=== PATIENT | male | born 1970 | race Caucasian/White ===

== ENCOUNTER → 2020-08-06 11:36 | Outpatient (CLI) | payer OTHER, SELFPAY ==
--- NOTE | 2020-08-06 | DI.RAD.S_ITS ---
PROCEDURE: XR SHOULDER RT MIN 2V INDICATIONS: DECREASED ROM, PAIN, R/O BONY ABNORMALITY TECHNIQUE: 3 views of the shoulder were acquired. COMPARISON: None. FINDINGS: Bones: No fracture. Lateral downsloping of the acromion. Soft tissues: No suspicious soft tissue calcifications. IMPRESSION: Lateral downsloping appearance to the acromion otherwise unremarkable examination. If the patient's pain or other symptoms persist, consider further evaluation with MRI Dictated by: Jacky Saenz M.D. on 08/06/2020 at 12:10 Approved by: Jacky Saenz M.D. on 08/06/2020 at 12:11
== END ==
PROVIDERS: Referring Provider Physician Assistant; Visit Provider Physician Assistant
DX: M25.511 Pain in right shoulder (principal)
CPT/HCPCS: 73030

== ENCOUNTER 2020-10-22 14:30 | Outpatient (RCR) | payer OTHER, SELFPAY ==
--- NOTE | 2020-09-18 14:07 | PT.OIE ---
Current Diagnoses Pain in right shoulder (09/18/20) Past Medical History (Last Updated 08/06/20 @ 11:18 by Sarah Kimball PA-C) Right shoulder pain (Acute) Visit Care Team Role Provider Type Doctor MD Arvind Primary Care Provider Non-Staff Specialty: Medical Address: Phone: Fax: Email: Sarah Kimball PA-C Attending Provider Advanced Supervisor Forming And Tempering Referring Provider Specialty: Internal Medicine Address: [address] [place] [address], [place], [address] Email: [email or web address] Physical Therapy Initial Evaluation PT-OP-A Visit Information Start: 09/17/20 13:29 Freq: Status: Active Protocol: Document 09/18/20 07:30 MB (Rec: 09/18/20 07:54 MB [id number]) Out-Patient Physical Therapy Visit Information Visit Information Visit Type Initial Evaluation Visit Start Time 07:30 Visit Stop Time 08:15 Total Visit Minutes 45 Visit Number 1 Evaluation Information Evaluation Date 09/18/20 PT-OP-B Current Condition Start: 09/17/20 13:29 Freq: Status: Active Protocol: Document 09/18/20 07:30 MB (Rec: 09/18/20 07:54 MB [id number]) Current Condition History of Current Condition Onset Date 3 months Current Complaints Pain with reaching to the side History of Current Condition 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 Lifting, push-ups can cause symptoms. He does not tolerate massage. He tried Lyrica and Gabapentin and they affected his short-term memory. Sleeping is going better since he got a Temperpedic mattress . Pt reports 7-8/10 pain in right shoulder with certain movement including reaching deep into a shelf at the grocery store. Putting on his shirt is problematic and he bought some bigger t-shirts. He has trouble with using back scrubber with his right arm. He feels like the shoulder is frozen and that he has a rotator cuff issue. Pt reports history of hiatal hernia. He has a virtual surgeon appointment this week. He has reflux and snoring and uses a CPAP. He sleeps on his right side with one pillow support under head. Pt has a history of left rotator cuff injury and suddenly he couldn't lift. He had free movement but but lost strength to lift. He went to PT and got better. Pt states that pillow case exercise against the wall was helpful. The body blade was also helpful. Pt sits at a desk all day. He has a desk that can move up and down. The carpet is cushiony and the chair is supportive. 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 Pt likes to walk for exercise. Prior Treatments and Tests X-ray right shoulder 08/06/2020 revealed lateral downsloping appearance to the acromion otherwise unremarkable examination. Treatment Goals Patient/Caregiver Goals To get out of pain and become less cranky. PT-OP-C Subjective Start: 09/17/20 13:29 Freq: Status: Active Protocol: Document 09/18/20 07:30 MB (Rec: 09/18/20 07:54 MB [id number]) OP-PT Subjective Patient Comments Patient Comments See history of current condition Patient Reported Progress Improving Patient Questionnaires Quick Dash- Upper Extremity Quick Dash UE Score 28 Quick Dash UE Impairment 20 to 39% Impaired (Score 20- 39) PT-OP-J Posture/Palpation/Skin Start: 09/17/20 13:29 Freq: Status: Active Protocol: Document 09/18/20 07:30 MB (Rec: 09/18/20 11:20 MB [id number]) Posture Evaluation Comments Posture Comments Standing: forward head, rounded shoulders, increased lumbar lordosis, anterior tilt pelvis, B shoulders elevated (greater on the left), increased thoracic kyphosis and curvature lower thoracic spine with right convexity, left iliac crest higher than the right. PT-OP-K Range of Motion Start: 09/17/20 13:29 Freq: Status: Active Protocol: Document 09/18/20 07:30 MB (Rec: 09/18/20 11:20 MB [id number]) Cervical Spine Range of Motion Cervical Spine Active Testing Position Standing Flexion 22 Extension 25 Rotation Left 40 Rotation Right 40 Lateral Flexion Left 15 Lateral Flexion Right 12 Shoulder Goniometric Range of Motion Shoulder Left Shoulder ROM WFL Yes Testing Position Standing Right Shoulder ROM WFL No Testing Position Standing Flexion 146 Abduction 96 Internal Rotation Behind Back (text) Functional for dominant hand Comments Pt reports increased right shoulder discomfort with active shoulder flexion and abduction in standing. Passive ER and IR in supine with shoulder in 85 deg abd: ER 50 deg and IR 25 deg. Pt reports 8-9/10 pain with this and points to middle delt/ supraspinatus attachment area on the upper humerus. He reports 6/10 right shoulder pain with PROM flexion in supine to 150 deg at the same location. Shoulder ROM Limitations Shoulder ROM Limitations Pain PT-OP-M Strength Start: 09/17/20 13:29 Freq: Status: Active Protocol: Document 09/18/20 07:30 MB (Rec: 09/18/20 11:20 MB [id number]) Shoulder Strength Shoulder Manual Muscle Testing Left Flexion 5 Normal Abduction (C5) 4 Good External Rotation 3+ Fair+ Internal Rotation 4 Good Right Comments MMT deferred d/t pain and limited active ROM Elbow/Forearm Strength Elbow and Forearm Manual Muscle Testing Left Flexion (C6) 5 Normal Extension (C7) 5 Normal Pronation 5 Normal Supination 5 Normal Right Flexion (C6) 4 Good Extension (C7) 5 Normal Pronation 4 Good Supination 4 Good Comments Pt reports minimal discomfort at painful spot near shoulder Wrist Strength Wrist Manual Muscle Testing Left Flexion (C7) 5 Normal Extension (C6) 5 Normal Ulnar Deviation 5 Normal Radial Deviation 5 Normal Right Flexion (C7) 4 Good Extension (C6) 4 Good Ulnar Deviation 4 Good Radial Deviation 4 Good PT-OP-T Assessment and Plan Start: 09/17/20 13:29 Freq: Status: Active Protocol: Document 09/18/20 07:30 MB (Rec: 09/18/20 11:20 MB [id number]) Physical Therapy Assessment Rehab Potential Rehabilitation Potential Fair Evaluation Complexity Number of Personal Factors/Comorbidities 1-2 Number of Body Systems Impaired 1-2 Clinical Presentation at Evaluation Evolving Impairments Impairments Pain,Posture,ROM,Sensation, Soft Tissue Mobility,Strength Other Impairments Pt has underlying HNPP and states that he is sensitive to touch, lifting weights and some other exercises. He has experienced palsy symptoms in the past. He also has anatomical changes of right acromion position. These are barriers to PT. Goals 4 Ice Cream Machine Operator Goal (LTG) Pt will perform progressive HEP with I including postural, range of motion, flexibility and strengthening to improve pain and function by 11/18/2020 . LTG Duration 8 weeks 3 Chcf Goal (LTG) Pt will present with improved right shoulder strength to at least 4/5 flexion, abduction, ER and IR to improve overall right arm function by 2020. LTG Duration 8 weeks 2 Ice Cream Machine Operator Goal (LTG) Pt will present with improved right shoulder AROM flexion and abduction equal to the left to improve functional use of arm by 11/18/2020. LTG Duration 8 weeks 1 Ice Cream Machine Operator Goal (LTG) Pt will present with improved QuickDASH score to reflect no more than 15% impairment to reflect improved function and decreased pain by 11/18/2020. LTG Duration 8 weeks Assessment Summary Assessment Pt is a 50 y/o male presenting with right shoulder pain and limitations in range of motion and strength. Pt denies injury and reports gradual progressive pain over three months. X-ray of right shoulder revealed acrominion positioning changes and pt reports that he has underlying hereditary disease of HNPP that causes occ palsy and pain . He has to limit exercises and strengthening as a result of this condition. He also reports occ intolerance to manual interventions. This may be a barrier to PT. He did respond well to PT for his left shoulder in the past. He will benefit from PT to improve right shoulder ROM, strength and functional use. Physical Therapy Plan Frequency and Duration Frequency of Treatment 2x/Week Duration of Treatment 8 weeks Plan of Care Start Date 09/18/20 Plan of Care End Date 11/19/20 Therapeutic Interventions Therapeutic Interventions Balance Training,Canalithic Repositioning,Coordination Training,Home Exercise Program ,Joint Mobilizations,Manual Therapy,Neuromuscular Re- education,Patient/Caregiver Education,Self-Care/Home Management,Sensory Integration ,Soft Tissue Mobilization, Taping,Therapeutic Activities, Therapeutic Exercises Modalities Cold Pack/Ice Massage,Electric Stimulation,Hot Packs, Ultrasound Next Visit Focus/Plan Next Note Type Treatment Note Next Visit Plan Initiate exercises including pillow case flexion, UBE, thoracic mobility, use of cane for AAROM
--- NOTE | 2020-09-18 14:08 | PT.OPPOC ---
Physical, Occupational & Speech Therapy At [facility] Current Diagnoses Pain in right shoulder (09/18/20) Visit Care Team Role Provider Type Doctor MD Arvind Primary Care Provider Non-Staff Specialty: Medical Address: Phone: Fax: Email: Sarah Kimball PA-C Attending Provider Advanced Cellular Equipment Repairer Referring Provider Specialty: Internal Medicine Address: [address] [place] [address], [facility] [place], [address] Email: [email or web address] Plan Of Care PT-OP-T Assessment and Plan Start: 09/17/20 13:29 Freq: Status: Active Protocol: Document 09/18/20 07:30 MB (Rec: 09/18/20 11:20 MB [id number]) Physical Therapy Assessment Rehab Potential Rehabilitation Potential Fair Evaluation Complexity Number of Personal Factors/Comorbidities 1-2 Number of Body Systems Impaired 1-2 Clinical Presentation at Evaluation Evolving Impairments Impairments Pain,Posture,ROM,Sensation, Soft Tissue Mobility,Strength Other Impairments Pt has underlying HNPP and states that he is sensitive to touch, lifting weights and some other exercises. He has experienced palsy symptoms in the past. He also has anatomical changes of right acromion position. These are barriers to PT. Goals 4 Medical Field Representative Goal (LTG) Pt will perform progressive HEP with I including postural, range of motion, flexibility and strengthening to improve pain and function by 11/18/2020 . LTG Duration 8 weeks 3 Medical Field Representative Goal (LTG) Pt will present with improved right shoulder strength to at least 4/5 flexion, abduction, ER and IR to improve overall right arm function by 2020. LTG Duration 8 weeks 2 Mcfp Goal (LTG) Pt will present with improved right shoulder AROM flexion and abduction equal to the left to improve functional use of arm by 11/18/2020. LTG Duration 8 weeks 1 Mcfp Goal (LTG) Pt will present with improved QuickDASH score to reflect no more than 15% impairment to reflect improved function and decreased pain by 11/18/2020. LTG Duration 8 weeks Assessment Summary Assessment Pt is a 50 y/o male presenting with right shoulder pain and limitations in range of motion and strength. Pt denies injury and reports gradual progressive pain over three months. X-ray of right shoulder revealed acrominion positioning changes and pt reports that he has underlying hereditary disease of HNPP that causes occ palsy and pain . He has to limit exercises and strengthening as a result of this condition. He also reports occ intolerance to manual interventions. This may be a barrier to PT. He did respond well to PT for his left shoulder in the past. He will benefit from PT to improve right shoulder ROM, strength and functional use. Physical Therapy Plan Frequency and Duration Frequency of Treatment 2x/Week Duration of Treatment 8 weeks Plan of Care Start Date 09/18/20 Plan of Care End Date 11/19/20 Therapeutic Interventions Therapeutic Interventions Balance Training,Canalithic Repositioning,Coordination Training,Home Exercise Program ,Joint Mobilizations,Manual Therapy,Neuromuscular Re- education,Patient/Caregiver Education,Self-Care/Home Management,Sensory Integration ,Soft Tissue Mobilization, Taping,Therapeutic Activities, Therapeutic Exercises Modalities Cold Pack/Ice Massage,Electric Stimulation,Hot Packs, Ultrasound Next Visit Focus/Plan Next Note Type Treatment Note Next Visit Plan Initiate exercises including pillow case flexion, UBE, thoracic mobility, use of cane for AAROM Plan of Care Dates Plan of Care Start Date 09/18/20 Plan of Care End Date 11/19/20 Electronically Signed by: Shelby Brian, PT 09/18/20 [id number] Please Sign and Return: I have reviewed this Plan of Care and certify that the skilled therapy services above are required to meet the patient?s needs. Physician Signature Date Printed Name and Credentials Clinical Instructor Signature Printed Name and Credentials
--- NOTE | 2020-09-21 08:15 | PT.OTN ---
Current Diagnoses Pain in right shoulder (09/21/20) Physical Therapy Treatment Note PT-OP-A Visit Information Start: 09/17/20 13:29 Freq: Status: Active Protocol: Document 09/21/20 07:30 MB (Rec: 09/21/20 07:36 MB [id number]) Out-Patient Physical Therapy Visit Information Visit Information Visit Type Treatment Note Visit Start Time 07:30 Visit Stop Time 08:15 Total Visit Minutes 45 Visit Number 2 PT-OP-B Current Condition Start: 09/17/20 13:29 Freq: Status: Active Protocol: Document 09/18/20 07:30 MB (Rec: 09/18/20 07:54 MB [id number]) Current Condition History of Current Condition Onset Date 3 months Current Complaints Pain with reaching to the side History of Current Condition 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 Lifting, push-ups can cause symptoms. He does not tolerate massage. He tried Lyrica and Gabapentin and they affected his short-term memory. Sleeping is going better since he got a Temperpedic mattress . Pt reports 7-8/10 pain in right shoulder with certain movement including reaching deep into a shelf at the grocery store. Putting on his shirt is problematic and he bought some bigger t-shirts. He has trouble with using back scrubber with his right arm. He feels like the shoulder is frozen and that he has a rotator cuff issue. Pt reports history of hiatal hernia. He has a virtual surgeon appointment this week. He has reflux and snoring and uses a CPAP. He sleeps on his right side with one pillow support under head. Pt has a history of left rotator cuff injury and suddenly he couldn't lift. He had free movement but but lost strength to lift. He went to PT and got better. Pt states that pillow case exercise against the wall was helpful. The body blade was also helpful. Pt sits at a desk all day. He has a desk that can move up and down. The carpet is cushiony and the chair is supportive. 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 Pt likes to walk for exercise. Prior Treatments and Tests X-ray right shoulder 08/06/2020 revealed lateral downsloping appearance to the acromion otherwise unremarkable examination. Treatment Goals Patient/Caregiver Goals To get out of pain and become less cranky. PT-OP-C Subjective Start: 09/17/20 13:29 Freq: Status: Active Protocol: Document 09/21/20 07:30 MB (Rec: 09/21/20 07:36 MB [id number]) OP-PT Subjective Patient Comments Patient Comments I'm doing okay. PT-OP-J Posture/Palpation/Skin Start: 09/17/20 13:29 Freq: Status: Active Protocol: Document 09/18/20 07:30 MB (Rec: 09/18/20 11:20 MB [id number]) Posture Evaluation Comments Posture Comments Standing: forward head, rounded shoulders, increased lumbar lordosis, anterior tilt pelvis, B shoulders elevated (greater on the left), increased thoracic kyphosis and curvature lower thoracic spine with right convexity, left iliac crest higher than the right. PT-OP-K Range of Motion Start: 09/17/20 13:29 Freq: Status: Active Protocol: Document 09/18/20 07:30 MB (Rec: 09/18/20 11:20 MB [id number]) Cervical Spine Range of Motion Cervical Spine Active Testing Position Standing Flexion 22 Extension 25 Rotation Left 40 Rotation Right 40 Lateral Flexion Left 15 Lateral Flexion Right 12 Shoulder Goniometric Range of Motion Shoulder Left Shoulder ROM WFL Yes Testing Position Standing Right Shoulder ROM WFL No Testing Position Standing Flexion 146 Abduction 96 Internal Rotation Behind Back (text) Functional for dominant hand Comments Pt reports increased right shoulder discomfort with active shoulder flexion and abduction in standing. Passive ER and IR in supine with shoulder in 85 deg abd: ER 50 deg and IR 25 deg. Pt reports 8-9/10 pain with this and points to middle delt/ supraspinatus attachment area on the upper humerus. He reports 6/10 right shoulder pain with PROM flexion in supine to 150 deg at the same location. Shoulder ROM Limitations Shoulder ROM Limitations Pain PT-OP-M Strength Start: 09/17/20 13:29 Freq: Status: Active Protocol: Document 09/18/20 07:30 MB (Rec: 09/18/20 11:20 MB [id number]) Shoulder Strength Shoulder Manual Muscle Testing Left Flexion 5 Normal Abduction (C5) 4 Good External Rotation 3+ Fair+ Internal Rotation 4 Good Right Comments MMT deferred d/t pain and limited active ROM Elbow/Forearm Strength Elbow and Forearm Manual Muscle Testing Left Flexion (C6) 5 Normal Extension (C7) 5 Normal Pronation 5 Normal Supination 5 Normal Right Flexion (C6) 4 Good Extension (C7) 5 Normal Pronation 4 Good Supination 4 Good Comments Pt reports minimal discomfort at painful spot near shoulder Wrist Strength Wrist Manual Muscle Testing Left Flexion (C7) 5 Normal Extension (C6) 5 Normal Ulnar Deviation 5 Normal Radial Deviation 5 Normal Right Flexion (C7) 4 Good Extension (C6) 4 Good Ulnar Deviation 4 Good Radial Deviation 4 Good PT-OP-Q Treatments Start: 09/17/20 13:29 Freq: Status: Active Protocol: Document 09/21/20 07:30 MB (Rec: 09/21/20 07:59 MB [id number]) Cardio Equipment Upper Body Ergometer (UBE) Duration (Minutes) 6 Other 3' forward and 3' backwards Therapeutic Exercises Supine Exercises 1/2 foam roller posterior capsule stretch Side right Comments 30 sec hold and pt to perform B at home 1/2 foam roller flexion, abduction, ER with cane Side right Comments 10 reps slowly in available range Standing Exercises Self-massage with racquet ball intrascapular muscles Side right Comments Performed today, also hold TrP and rotate head Pillow case flexion Side bilateral Comments 10 reps and cues to squeeze scapula on the way down PT-OP-T Assessment and Plan Start: 09/17/20 13:29 Freq: Status: Active Protocol: Document 09/21/20 07:30 MB (Rec: 09/21/20 07:36 MB [id number]) Physical Therapy Assessment Rehab Potential Rehabilitation Potential Fair Evaluation Complexity Number of Personal Factors/Comorbidities 1-2 Number of Body Systems Impaired 1-2 Clinical Presentation at Evaluation Evolving Impairments Impairments Pain,Posture,ROM,Sensation, Soft Tissue Mobility,Strength Other Impairments Pt has underlying HNPP and states that he is sensitive to touch, lifting weights and some other exercises. He has experienced palsy symptoms in the past. He also has anatomical changes of right acromion position. These are barriers to PT. Goals 4 Manager Life Sciences Goal (LTG) Pt will perform progressive HEP with I including postural, range of motion, flexibility and strengthening to improve pain and function by 11/18/2020 . LTG Duration 8 weeks 3 Manager Life Sciences Goal (LTG) Pt will present with improved right shoulder strength to at least 4/5 flexion, abduction, ER and IR to improve overall right arm function by 2020. LTG Duration 8 weeks 2 Fdc Goal (LTG) Pt will present with improved right shoulder AROM flexion and abduction equal to the left to improve functional use of arm by 11/18/2020. LTG Duration 8 weeks 1 Fdc Goal (LTG) Pt will present with improved QuickDASH score to reflect no more than 15% impairment to reflect improved function and decreased pain by 11/18/2020. LTG Duration 8 weeks Assessment Summary Assessment Pt improves with AAROM right shoulder abduction with cane over 1/2 foam roller today, gaining 20 deg with increasing reps. Con't progression as pt tolerates. Physical Therapy Plan Frequency and Duration Frequency of Treatment 2x/Week Duration of Treatment 8 weeks Plan of Care Start Date 09/18/20 Plan of Care End Date 11/19/20 Therapeutic Interventions Therapeutic Interventions Balance Training,Canalithic Repositioning,Coordination Training,Home Exercise Program ,Joint Mobilizations,Manual Therapy,Neuromuscular Re- education,Patient/Caregiver Education,Self-Care/Home Management,Sensory Integration ,Soft Tissue Mobilization, Taping,Therapeutic Activities, Therapeutic Exercises Modalities Cold Pack/Ice Massage,Electric Stimulation,Hot Packs, Ultrasound Next Visit Focus/Plan Next Note Type Treatment Note Next Visit Plan Progress exercises as pt tolerates, relaxation/ breathing exercises
--- NOTE | 2020-09-21 14:16 | PT.OTN ---
Current Diagnoses Pain in right shoulder (09/21/20) Physical Therapy Treatment Note PT-OP-A Visit Information Start: 09/17/20 13:29 Freq: Status: Active Protocol: Document 09/21/20 07:30 MB (Rec: 09/21/20 07:36 MB [id number]) Out-Patient Physical Therapy Visit Information Visit Information Visit Type Treatment Note Visit Start Time 07:30 Visit Stop Time 08:15 Total Visit Minutes 45 Visit Number 2 PT-OP-B Current Condition Start: 09/17/20 13:29 Freq: Status: Active Protocol: Document 09/18/20 07:30 MB (Rec: 09/18/20 07:54 MB [id number]) Current Condition History of Current Condition Onset Date 3 months Current Complaints Pain with reaching to the side History of Current Condition 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 Lifting, push-ups can cause symptoms. He does not tolerate massage. He tried Lyrica and Gabapentin and they affected his short-term memory. Sleeping is going better since he got a Temperpedic mattress . Pt reports 7-8/10 pain in right shoulder with certain movement including reaching deep into a shelf at the grocery store. Putting on his shirt is problematic and he bought some bigger t-shirts. He has trouble with using back scrubber with his right arm. He feels like the shoulder is frozen and that he has a rotator cuff issue. Pt reports history of hiatal hernia. He has a virtual surgeon appointment this week. He has reflux and snoring and uses a CPAP. He sleeps on his right side with one pillow support under head. Pt has a history of left rotator cuff injury and suddenly he couldn't lift. He had free movement but but lost strength to lift. He went to PT and got better. Pt states that pillow case exercise against the wall was helpful. The body blade was also helpful. Pt sits at a desk all day. He has a desk that can move up and down. The carpet is cushiony and the chair is supportive. 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 Pt likes to walk for exercise. Prior Treatments and Tests X-ray right shoulder 08/06/2020 revealed lateral downsloping appearance to the acromion otherwise unremarkable examination. Treatment Goals Patient/Caregiver Goals To get out of pain and become less cranky. PT-OP-C Subjective Start: 09/17/20 13:29 Freq: Status: Active Protocol: Document 09/21/20 07:30 MB (Rec: 09/21/20 07:36 MB [id number]) OP-PT Subjective Patient Comments Patient Comments I'm doing okay. PT-OP-J Posture/Palpation/Skin Start: 09/17/20 13:29 Freq: Status: Active Protocol: Document 09/18/20 07:30 MB (Rec: 09/18/20 11:20 MB [id number]) Posture Evaluation Comments Posture Comments Standing: forward head, rounded shoulders, increased lumbar lordosis, anterior tilt pelvis, B shoulders elevated (greater on the left), increased thoracic kyphosis and curvature lower thoracic spine with right convexity, left iliac crest higher than the right. PT-OP-K Range of Motion Start: 09/17/20 13:29 Freq: Status: Active Protocol: Document 09/18/20 07:30 MB (Rec: 09/18/20 11:20 MB [id number]) Cervical Spine Range of Motion Cervical Spine Active Testing Position Standing Flexion 22 Extension 25 Rotation Left 40 Rotation Right 40 Lateral Flexion Left 15 Lateral Flexion Right 12 Shoulder Goniometric Range of Motion Shoulder Left Shoulder ROM WFL Yes Testing Position Standing Right Shoulder ROM WFL No Testing Position Standing Flexion 146 Abduction 96 Internal Rotation Behind Back (text) Functional for dominant hand Comments Pt reports increased right shoulder discomfort with active shoulder flexion and abduction in standing. Passive ER and IR in supine with shoulder in 85 deg abd: ER 50 deg and IR 25 deg. Pt reports 8-9/10 pain with this and points to middle delt/ supraspinatus attachment area on the upper humerus. He reports 6/10 right shoulder pain with PROM flexion in supine to 150 deg at the same location. Shoulder ROM Limitations Shoulder ROM Limitations Pain PT-OP-M Strength Start: 09/17/20 13:29 Freq: Status: Active Protocol: Document 09/18/20 07:30 MB (Rec: 09/18/20 11:20 MB [id number]) Shoulder Strength Shoulder Manual Muscle Testing Left Flexion 5 Normal Abduction (C5) 4 Good External Rotation 3+ Fair+ Internal Rotation 4 Good Right Comments MMT deferred d/t pain and limited active ROM Elbow/Forearm Strength Elbow and Forearm Manual Muscle Testing Left Flexion (C6) 5 Normal Extension (C7) 5 Normal Pronation 5 Normal Supination 5 Normal Right Flexion (C6) 4 Good Extension (C7) 5 Normal Pronation 4 Good Supination 4 Good Comments Pt reports minimal discomfort at painful spot near shoulder Wrist Strength Wrist Manual Muscle Testing Left Flexion (C7) 5 Normal Extension (C6) 5 Normal Ulnar Deviation 5 Normal Radial Deviation 5 Normal Right Flexion (C7) 4 Good Extension (C6) 4 Good Ulnar Deviation 4 Good Radial Deviation 4 Good PT-OP-Q Treatments Start: 09/17/20 13:29 Freq: Status: Active Protocol: Document 09/21/20 07:30 MB (Rec: 09/21/20 07:59 MB [id number]) Cardio Equipment Upper Body Ergometer (UBE) Duration (Minutes) 6 Other 3' forward and 3' backwards Therapeutic Exercises Supine Exercises 1/2 foam roller posterior capsule stretch Side right Comments 30 sec hold and pt to perform B at home 1/2 foam roller flexion, abduction, ER with cane Side right Comments 10 reps slowly in available range Standing Exercises Self-massage with racquet ball intrascapular muscles Side right Comments Performed today, also hold TrP and rotate head Pillow case flexion Side bilateral Comments 10 reps and cues to squeeze scapula on the way down Self-Care/Home Management Treatment Education Other Education Pt reports dizziness when going to lie down on foam roller today. Ed pt to log roll on and off and also to log roll getting in and OOB and he is using a contour pillow at home. PT-OP-T Assessment and Plan Start: 09/17/20 13:29 Freq: Status: Active Protocol: Document 09/21/20 07:30 MB (Rec: 09/21/20 07:36 MB [id number]) Physical Therapy Assessment Rehab Potential Rehabilitation Potential Fair Evaluation Complexity Number of Personal Factors/Comorbidities 1-2 Number of Body Systems Impaired 1-2 Clinical Presentation at Evaluation Evolving Impairments Impairments Pain,Posture,ROM,Sensation, Soft Tissue Mobility,Strength Other Impairments Pt has underlying HNPP and states that he is sensitive to touch, lifting weights and some other exercises. He has experienced palsy symptoms in the past. He also has anatomical changes of right acromion position. These are barriers to PT. Goals 4 Body Former Goal (LTG) Pt will perform progressive HEP with I including postural, range of motion, flexibility and strengthening to improve pain and function by 11/18/2020 . LTG Duration 8 weeks 3 Halfway Goal (LTG) Pt will present with improved right shoulder strength to at least 4/5 flexion, abduction, ER and IR to improve overall right arm function by 2020. LTG Duration 8 weeks 2 Body Former Goal (LTG) Pt will present with improved right shoulder AROM flexion and abduction equal to the left to improve functional use of arm by 11/18/2020. LTG Duration 8 weeks 1 Body Former Goal (LTG) Pt will present with improved QuickDASH score to reflect no more than 15% impairment to reflect improved function and decreased pain by 11/18/2020. LTG Duration 8 weeks Assessment Summary Assessment Pt reports dizziness when going to lie down on foam roller today. He states that this happens at the dentist when they go to lie back the chair. BPPV testing is negative for all canals. PT favors cervical tension in SCM for symptoms and ed pt on body mechanics for rolling and to hold his head when being reclined in dentist chair. Pt improves with AAROM right shoulder abduction with cane over 1/2 foam roller today, gaining 20 deg with increasing reps. Con't progression as pt tolerates. Physical Therapy Plan Frequency and Duration Frequency of Treatment 2x/Week Duration of Treatment 8 weeks Plan of Care Start Date 09/18/20 Plan of Care End Date 11/19/20 Therapeutic Interventions Therapeutic Interventions Balance Training,Canalithic Repositioning,Coordination Training,Home Exercise Program ,Joint Mobilizations,Manual Therapy,Neuromuscular Re- education,Patient/Caregiver Education,Self-Care/Home Management,Sensory Integration ,Soft Tissue Mobilization, Taping,Therapeutic Activities, Therapeutic Exercises Modalities Cold Pack/Ice Massage,Electric Stimulation,Hot Packs, Ultrasound Next Visit Focus/Plan Next Note Type Treatment Note Next Visit Plan Progress exercises as pt tolerates, relaxation/ breathing exercises
--- NOTE | 2020-09-25 08:17 | PT.OTN ---
Current Diagnoses Pain in right shoulder (09/25/20) Physical Therapy Treatment Note PT-OP-A Visit Information Start: 09/17/20 13:29 Freq: Status: Active Protocol: Document 09/25/20 07:30 MB (Rec: 09/25/20 08:14 MB [id number]) Out-Patient Physical Therapy Visit Information Visit Information Visit Type Treatment Note Visit Start Time 07:30 Visit Stop Time 08:15 Total Visit Minutes 45 Visit Number 3 PT-OP-B Current Condition Start: 09/17/20 13:29 Freq: Status: Active Protocol: Document 09/18/20 07:30 MB (Rec: 09/18/20 07:54 MB [id number]) Current Condition History of Current Condition Onset Date 3 months Current Complaints Pain with reaching to the side History of Current Condition 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 Lifting, push-ups can cause symptoms. He does not tolerate massage. He tried Lyrica and Gabapentin and they affected his short-term memory. Sleeping is going better since he got a Temperpedic mattress . Pt reports 7-8/10 pain in right shoulder with certain movement including reaching deep into a shelf at the grocery store. Putting on his shirt is problematic and he bought some bigger t-shirts. He has trouble with using back scrubber with his right arm. He feels like the shoulder is frozen and that he has a rotator cuff issue. Pt reports history of hiatal hernia. He has a virtual surgeon appointment this week. He has reflux and snoring and uses a CPAP. He sleeps on his right side with one pillow support under head. Pt has a history of left rotator cuff injury and suddenly he couldn't lift. He had free movement but but lost strength to lift. He went to PT and got better. Pt states that pillow case exercise against the wall was helpful. The body blade was also helpful. Pt sits at a desk all day. He has a desk that can move up and down. The carpet is cushiony and the chair is supportive. 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 Pt likes to walk for exercise. Prior Treatments and Tests X-ray right shoulder 08/06/2020 revealed lateral downsloping appearance to the acromion otherwise unremarkable examination. Treatment Goals Patient/Caregiver Goals To get out of pain and become less cranky. PT-OP-C Subjective Start: 09/17/20 13:29 Freq: Status: Active Protocol: Document 09/25/20 07:30 MB (Rec: 09/25/20 08:14 MB [id number]) OP-PT Subjective Patient Comments Patient Comments I'm about the same unfortunately. PT-OP-J Posture/Palpation/Skin Start: 09/17/20 13:29 Freq: Status: Active Protocol: Document 09/18/20 07:30 MB (Rec: 09/18/20 11:20 MB [id number]) Posture Evaluation Comments Posture Comments Standing: forward head, rounded shoulders, increased lumbar lordosis, anterior tilt pelvis, B shoulders elevated (greater on the left), increased thoracic kyphosis and curvature lower thoracic spine with right convexity, left iliac crest higher than the right. PT-OP-K Range of Motion Start: 09/17/20 13:29 Freq: Status: Active Protocol: Document 09/18/20 07:30 MB (Rec: 09/18/20 11:20 MB [id number]) Cervical Spine Range of Motion Cervical Spine Active Testing Position Standing Flexion 22 Extension 25 Rotation Left 40 Rotation Right 40 Lateral Flexion Left 15 Lateral Flexion Right 12 Shoulder Goniometric Range of Motion Shoulder Left Shoulder ROM WFL Yes Testing Position Standing Right Shoulder ROM WFL No Testing Position Standing Flexion 146 Abduction 96 Internal Rotation Behind Back (text) Functional for dominant hand Comments Pt reports increased right shoulder discomfort with active shoulder flexion and abduction in standing. Passive ER and IR in supine with shoulder in 85 deg abd: ER 50 deg and IR 25 deg. Pt reports 8-9/10 pain with this and points to middle delt/ supraspinatus attachment area on the upper humerus. He reports 6/10 right shoulder pain with PROM flexion in supine to 150 deg at the same location. Shoulder ROM Limitations Shoulder ROM Limitations Pain PT-OP-M Strength Start: 09/17/20 13:29 Freq: Status: Active Protocol: Document 09/18/20 07:30 MB (Rec: 09/18/20 11:20 MB [id number]) Shoulder Strength Shoulder Manual Muscle Testing Left Flexion 5 Normal Abduction (C5) 4 Good External Rotation 3+ Fair+ Internal Rotation 4 Good Right Comments MMT deferred d/t pain and limited active ROM Elbow/Forearm Strength Elbow and Forearm Manual Muscle Testing Left Flexion (C6) 5 Normal Extension (C7) 5 Normal Pronation 5 Normal Supination 5 Normal Right Flexion (C6) 4 Good Extension (C7) 5 Normal Pronation 4 Good Supination 4 Good Comments Pt reports minimal discomfort at painful spot near shoulder Wrist Strength Wrist Manual Muscle Testing Left Flexion (C7) 5 Normal Extension (C6) 5 Normal Ulnar Deviation 5 Normal Radial Deviation 5 Normal Right Flexion (C7) 4 Good Extension (C6) 4 Good Ulnar Deviation 4 Good Radial Deviation 4 Good PT-OP-Q Treatments Start: 09/17/20 13:29 Freq: Status: Active Protocol: Document 09/25/20 07:30 MB (Rec: 09/25/20 08:14 MB [id number]) Cardio Equipment Upper Body Ergometer (UBE) Duration (Minutes) 6 Other 3' forward and 3' backwards Manual Therapy Treatment Other Other Manual Treatments Pt agrees to Counterstrain to assess and treat fascial tension and he presents with tension in the following fascial systems: visceral, lymphatic venous and DPR and PT treats stacks in the following systems: visceral and ALL (proximal) B SCM MWM, greater tension on the right today PT-OP-T Assessment and Plan Start: 09/17/20 13:29 Freq: Status: Active Protocol: Document 09/25/20 07:30 MB (Rec: 09/25/20 08:14 MB [id number]) Physical Therapy Assessment Rehab Potential Rehabilitation Potential Fair Evaluation Complexity Number of Personal Factors/Comorbidities 1-2 Number of Body Systems Impaired 1-2 Clinical Presentation at Evaluation Evolving Impairments Impairments Pain,Posture,ROM,Sensation, Soft Tissue Mobility,Strength Other Impairments Pt has underlying HNPP and states that he is sensitive to touch, lifting weights and some other exercises. He has experienced palsy symptoms in the past. He also has anatomical changes of right acromion position. These are barriers to PT. Goals 4 Usp Goal (LTG) Pt will perform progressive HEP with I including postural, range of motion, flexibility and strengthening to improve pain and function by 11/18/2020 . LTG Duration 8 weeks 3 Usp Goal (LTG) Pt will present with improved right shoulder strength to at least 4/5 flexion, abduction, ER and IR to improve overall right arm function by 2020. LTG Duration 8 weeks 2 Construction Recruiter Goal (LTG) Pt will present with improved right shoulder AROM flexion and abduction equal to the left to improve functional use of arm by 11/18/2020. LTG Duration 8 weeks 1 Construction Recruiter Goal (LTG) Pt will present with improved QuickDASH score to reflect no more than 15% impairment to reflect improved function and decreased pain by 11/18/2020. LTG Duration 8 weeks Assessment Summary Assessment Initiated Counterstrain today and pt responds well. Con't to monitor. Con't progression as pt tolerates. Physical Therapy Plan Frequency and Duration Frequency of Treatment 2x/Week Duration of Treatment 8 weeks Plan of Care Start Date 09/18/20 Plan of Care End Date 11/19/20 Therapeutic Interventions Therapeutic Interventions Balance Training,Canalithic Repositioning,Coordination Training,Home Exercise Program ,Joint Mobilizations,Manual Therapy,Neuromuscular Re- education,Patient/Caregiver Education,Self-Care/Home Management,Sensory Integration ,Soft Tissue Mobilization, Taping,Therapeutic Activities, Therapeutic Exercises Modalities Cold Pack/Ice Massage,Electric Stimulation,Hot Packs, Ultrasound Next Visit Focus/Plan Next Note Type Treatment Note Next Visit Plan Progress exercises as pt tolerates, relaxation/ breathing exercises
--- NOTE | 2020-09-28 08:38 | PT.OTN ---
Current Diagnoses Pain in right shoulder (09/28/20) Physical Therapy Treatment Note PT-OP-A Visit Information Start: 09/17/20 13:29 Freq: Status: Active Protocol: Document 09/28/20 07:32 MB (Rec: 09/28/20 08:30 MB [id number]) Out-Patient Physical Therapy Visit Information Visit Information Visit Type Treatment Note Visit Start Time 07:32 Visit Stop Time 08:28 Total Visit Minutes 56 Visit Number 4 PT-OP-B Current Condition Start: 09/17/20 13:29 Freq: Status: Active Protocol: Document 09/18/20 07:30 MB (Rec: 09/18/20 07:54 MB [id number]) Current Condition History of Current Condition Onset Date 3 months Current Complaints Pain with reaching to the side History of Current Condition 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 Lifting, push-ups can cause symptoms. He does not tolerate massage. He tried Lyrica and Gabapentin and they affected his short-term memory. Sleeping is going better since he got a Temperpedic mattress . Pt reports 7-810 pain in right shoulder with certain movement including reaching deep into a shelf at the grocery store. Putting on his shirt is problematic and he bought some bigger t-shirts. He has trouble with using back scrubber with his right arm. He feels like the shoulder is frozen and that he has a rotator cuff issue. Pt reports history of hiatal hernia. He has a virtual surgeon appointment this week. He has reflux and snoring and uses a CPAP. He sleeps on his right side with one pillow support under head. Pt has a history of left rotator cuff injury and suddenly he couldn't lift. He had free movement but but lost strength to lift. He went to PT and got better. Pt states that pillow case exercise against the wall was helpful. The body blade was also helpful. Pt sits at a desk all day. He has a desk that can move up and down. The carpet is cushiony and the chair is supportive. 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 Pt likes to walk for exercise. Prior Treatments and Tests X-ray right shoulder 08/06/2020 revealed lateral downsloping appearance to the acromion otherwise unremarkable examination. Treatment Goals Patient/Caregiver Goals To get out of pain and become less cranky. PT-OP-C Subjective Start: 09/17/20 13:29 Freq: Status: Active Protocol: Document 09/28/20 07:32 MB (Rec: 09/28/20 08:30 MB [id number]) OP-PT Subjective Patient Comments Patient Comments I felt a little looser with movement but the pain's the same. When PT asks pt how he responded to Counterstrain. He states that he needs to get up more often when working and will set a freeze software for every 50 minutes so that he will get up. PT-OP-J Posture/Palpation/Skin Start: 09/17/20 13:29 Freq: Status: Active Protocol: Document 09/18/20 07:30 MB (Rec: 09/18/20 11:20 MB [id number]) Posture Evaluation Comments Posture Comments Standing: forward head, rounded shoulders, increased lumbar lordosis, anterior tilt pelvis, B shoulders elevated (greater on the left), increased thoracic kyphosis and curvature lower thoracic spine with right convexity, left iliac crest higher than the right. PT-OP-K Range of Motion Start: 09/17/20 13:29 Freq: Status: Active Protocol: Document 09/18/20 07:30 MB (Rec: 09/18/20 11:20 MB [id number]) Cervical Spine Range of Motion Cervical Spine Active Testing Position Standing Flexion 22 Extension 25 Rotation Left 40 Rotation Right 40 Lateral Flexion Left 15 Lateral Flexion Right 12 Shoulder Goniometric Range of Motion Shoulder Left Shoulder ROM WFL Yes Testing Position Standing Right Shoulder ROM WFL No Testing Position Standing Flexion 146 Abduction 96 Internal Rotation Behind Back (text) Functional for dominant hand Comments Pt reports increased right shoulder discomfort with active shoulder flexion and abduction in standing. Passive ER and IR in supine with shoulder in 85 deg abd: ER 50 deg and IR 25 deg. Pt reports 8-9/10 pain with this and points to middle delt/ supraspinatus attachment area on the upper humerus. He reports 6/10 right shoulder pain with PROM flexion in supine to 150 deg at the same location. Shoulder ROM Limitations Shoulder ROM Limitations Pain PT-OP-M Strength Start: 09/17/20 13:29 Freq: Status: Active Protocol: Document 09/18/20 07:30 MB (Rec: 09/18/20 11:20 MB [id number]) Shoulder Strength Shoulder Manual Muscle Testing Left Flexion 5 Normal Abduction (C5) 4 Good External Rotation 3+ Fair+ Internal Rotation 4 Good Right Comments MMT deferred d/t pain and limited active ROM Elbow/Forearm Strength Elbow and Forearm Manual Muscle Testing Left Flexion (C6) 5 Normal Extension (C7) 5 Normal Pronation 5 Normal Supination 5 Normal Right Flexion (C6) 4 Good Extension (C7) 5 Normal Pronation 4 Good Supination 4 Good Comments Pt reports minimal discomfort at painful spot near shoulder Wrist Strength Wrist Manual Muscle Testing Left Flexion (C7) 5 Normal Extension (C6) 5 Normal Ulnar Deviation 5 Normal Radial Deviation 5 Normal Right Flexion (C7) 4 Good Extension (C6) 4 Good Ulnar Deviation 4 Good Radial Deviation 4 Good PT-OP-Q Treatments Start: 09/17/20 13:29 Freq: Status: Active Protocol: Document 09/28/20 07:32 MB (Rec: 09/28/20 08:30 MB [id number]) Cardio Equipment Upper Body Ergometer (UBE) Duration (Minutes) 7 Other 4' forward and 3' backwards Therapeutic Exercises Sitting Exercises AAROM right shoulder abduction over table Side right Reps/Minutes 5 reps x2 Comments Left hand with gentle pressure over AC joint to assess mobility Other Exercises Self-SCM MWM Side bilateral Comments Pt hook lying, cervical and pillow support, active rotation with SCM TrP pr Manual Therapy Treatment Other Other Manual Treatments [place] Protocol right shoulder with pt with most apprehension with right shoulder abduction. Pt's right shoulder abduction improves from 85 deg to 130 deg active in standing after mobs. Left first rib and SC mobs (recoil for SC), B MWM SCM with PT performing TrP pressure and pt performing active cervical rotation in supine with head and neck supported. Pt with reports of brief vertigo with lying down flat, ongoing cues for pt to hold his head on the way down or perform log rolling at home. PT-OP-T Assessment and Plan Start: 09/17/20 13:29 Freq: Status: Active Protocol: Document 09/28/20 07:32 MB (Rec: 09/28/20 08:30 MB [id number]) Physical Therapy Assessment Rehab Potential Rehabilitation Potential Fair Evaluation Complexity Number of Personal Factors/Comorbidities 1-2 Number of Body Systems Impaired 1-2 Clinical Presentation at Evaluation Evolving Impairments Impairments Pain,Posture,ROM,Sensation, Soft Tissue Mobility,Strength Other Impairments Pt has underlying HNPP and states that he is sensitive to touch, lifting weights and some other exercises. He has experienced palsy symptoms in the past. He also has anatomical changes of right acromion position. These are barriers to PT. Goals 4 Snf Goal (LTG) Pt will perform progressive HEP with I including postural, range of motion, flexibility and strengthening to improve pain and function by 11/18/2020 . LTG Duration 8 weeks 3 Snf Goal (LTG) Pt will present with improved right shoulder strength to at least 4/5 flexion, abduction, ER and IR to improve overall right arm function by 2020. LTG Duration 8 weeks 2 Security Escort Goal (LTG) Pt will present with improved right shoulder AROM flexion and abduction equal to the left to improve functional use of arm by 11/18/2020. LTG Duration 8 weeks 1 Snf Goal (LTG) Pt will present with improved QuickDASH score to reflect no more than 15% impairment to reflect improved function and decreased pain by 11/18/2020. LTG Duration 8 weeks Assessment Summary Assessment Pt's active right shoulder flexion improves 5 deg after [place] Protocol mobs and 35 deg abduction. He is able to sustain and even improve active abduction more (to 145 deg) after AAROM right shoulder abducion over table. Con't manual work and start further thoracic mobility. Physical Therapy Plan Frequency and Duration Frequency of Treatment 2x/Week Duration of Treatment 8 weeks Plan of Care Start Date 09/18/20 Plan of Care End Date 11/19/20 Therapeutic Interventions Therapeutic Interventions Balance Training,Canalithic Repositioning,Coordination Training,Home Exercise Program ,Joint Mobilizations,Manual Therapy,Neuromuscular Re- education,Patient/Caregiver Education,Self-Care/Home Management,Sensory Integration ,Soft Tissue Mobilization, Taping,Therapeutic Activities, Therapeutic Exercises Modalities Cold Pack/Ice Massage,Electric Stimulation,Hot Packs, Ultrasound Next Visit Focus/Plan Next Note Type Treatment Note Next Visit Plan Progress exercises as pt tolerates, relaxation/ breathing exercises. Consider pect stretch over foam roller, standing thread the needle and open book, gentle progressive strengthening.
--- NOTE | 2020-10-01 08:15 | PT.OTN ---
Current Diagnoses Pain in right shoulder (10/01/20) Physical Therapy Treatment Note PT-OP-A Visit Information Start: 09/17/20 13:29 Freq: Status: Active Protocol: Document 10/01/20 07:31 MB (Rec: 10/01/20 08:14 MB [id number]) Out-Patient Physical Therapy Visit Information Visit Information Visit Type Treatment Note Visit Start Time 07:31 Visit Stop Time 08:14 Total Visit Minutes 43 Visit Number 5 PT-OP-B Current Condition Start: 09/17/20 13:29 Freq: Status: Active Protocol: Document 09/18/20 07:30 MB (Rec: 09/18/20 07:54 MB [id number]) Current Condition History of Current Condition Onset Date 3 months Current Complaints Pain with reaching to the side History of Current Condition 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 Lifting, push-ups can cause symptoms. He does not tolerate massage. He tried Lyrica and Gabapentin and they affected his short-term memory. Sleeping is going better since he got a Temperpedic mattress . Pt reports 7-8/10 pain in right shoulder with certain movement including reaching deep into a shelf at the grocery store. Putting on his shirt is problematic and he bought some bigger t-shirts. He has trouble with using back scrubber with his right arm. He feels like the shoulder is frozen and that he has a rotator cuff issue. Pt reports history of hiatal hernia. He has a virtual surgeon appointment this week. He has reflux and snoring and uses a CPAP. He sleeps on his right side with one pillow support under head. Pt has a history of left rotator cuff injury and suddenly he couldn't lift. He had free movement but but lost strength to lift. He went to PT and got better. Pt states that pillow case exercise against the wall was helpful. The body blade was also helpful. Pt sits at a desk all day. He has a desk that can move up and down. The carpet is cushiony and the chair is supportive. 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 Pt likes to walk for exercise. Prior Treatments and Tests X-ray right shoulder 08/06/2020 revealed lateral downsloping appearance to the acromion otherwise unremarkable examination. Treatment Goals Patient/Caregiver Goals To get out of pain and become less cranky. PT-OP-C Subjective Start: 09/17/20 13:29 Freq: Status: Active Protocol: Document 10/01/20 07:31 MB (Rec: 10/01/20 08:14 MB [id number]) OP-PT Subjective Patient Comments Patient Comments It's starting to seize up again. Pt states that his right shoulder pain is a little better and getting the jacket on is a little better. He was able to clean out the gutters over the weekend. PT-OP-J Posture/Palpation/Skin Start: 09/17/20 13:29 Freq: Status: Active Protocol: Document 09/18/20 07:30 MB (Rec: 09/18/20 11:20 MB [id number]) Posture Evaluation Comments Posture Comments Standing: forward head, rounded shoulders, increased lumbar lordosis, anterior tilt pelvis, B shoulders elevated (greater on the left), increased thoracic kyphosis and curvature lower thoracic spine with right convexity, left iliac crest higher than the right. PT-OP-K Range of Motion Start: 09/17/20 13:29 Freq: Status: Active Protocol: Document 09/18/20 07:30 MB (Rec: 09/18/20 11:20 MB [id number]) Cervical Spine Range of Motion Cervical Spine Active Testing Position Standing Flexion 22 Extension 25 Rotation Left 40 Rotation Right 40 Lateral Flexion Left 15 Lateral Flexion Right 12 Shoulder Goniometric Range of Motion Shoulder Left Shoulder ROM WFL Yes Testing Position Standing Right Shoulder ROM WFL No Testing Position Standing Flexion 146 Abduction 96 Internal Rotation Behind Back (text) Functional for dominant hand Comments Pt reports increased right shoulder discomfort with active shoulder flexion and abduction in standing. Passive ER and IR in supine with shoulder in 85 deg abd: ER 50 deg and IR 25 deg. Pt reports 8-9/10 pain with this and points to middle delt/ supraspinatus attachment area on the upper humerus. He reports 6/10 right shoulder pain with PROM flexion in supine to 150 deg at the same location. Shoulder ROM Limitations Shoulder ROM Limitations Pain PT-OP-M Strength Start: 09/17/20 13:29 Freq: Status: Active Protocol: Document 09/18/20 07:30 MB (Rec: 09/18/20 11:20 MB [id number]) Shoulder Strength Shoulder Manual Muscle Testing Left Flexion 5 Normal Abduction (C5) 4 Good External Rotation 3+ Fair+ Internal Rotation 4 Good Right Comments MMT deferred d/t pain and limited active ROM Elbow/Forearm Strength Elbow and Forearm Manual Muscle Testing Left Flexion (C6) 5 Normal Extension (C7) 5 Normal Pronation 5 Normal Supination 5 Normal Right Flexion (C6) 4 Good Extension (C7) 5 Normal Pronation 4 Good Supination 4 Good Comments Pt reports minimal discomfort at painful spot near shoulder Wrist Strength Wrist Manual Muscle Testing Left Flexion (C7) 5 Normal Extension (C6) 5 Normal Ulnar Deviation 5 Normal Radial Deviation 5 Normal Right Flexion (C7) 4 Good Extension (C6) 4 Good Ulnar Deviation 4 Good Radial Deviation 4 Good PT-OP-Q Treatments Start: 09/17/20 13:29 Freq: Status: Active Protocol: Document 10/01/20 07:31 MB (Rec: 10/01/20 08:14 MB [id number]) Cardio Equipment Upper Body Ergometer (UBE) Duration (Minutes) 6 Other 3' forward and 3' backwards Therapeutic Exercises Sitting Exercises AAROM right shoulder abduction over table Side right Reps/Minutes 5 reps x4 Comments Left hand with gentle pressure over AC joint Standing Exercises Thread the needle Side bilateral Comments 2 reps each side Active shoulder abduction standing Side bilateral Comments 10 reps, pt standing against wall Other Exercises Self-SCM MWM Side left Comments AROM to the right as performing TrP pressure Manual Therapy Treatment Other Other Manual Treatments [place] Protocol right shoulder with improvements in range today, he had tension at GH capsule with mobs. Left 1st rib mob, isometric today. PT-OP-T Assessment and Plan Start: 09/17/20 13:29 Freq: Status: Active Protocol: Document 10/01/20 07:31 MB (Rec: 10/01/20 08:14 MB [id number]) Physical Therapy Assessment Rehab Potential Rehabilitation Potential Fair Evaluation Complexity Number of Personal Factors/Comorbidities 1-2 Number of Body Systems Impaired 1-2 Clinical Presentation at Evaluation Evolving Impairments Impairments Pain,Posture,ROM,Sensation, Soft Tissue Mobility,Strength Other Impairments Pt has underlying HNPP and states that he is sensitive to touch, lifting weights and some other exercises. He has experienced palsy symptoms in the past. He also has anatomical changes of right acromion position. These are barriers to PT. Goals 4 Basket Bottom Machine Operator Goal (LTG) Pt will perform progressive HEP with I including postural, range of motion, flexibility and strengthening to improve pain and function by 11/18/2020 . LTG Duration 8 weeks 3 Basket Bottom Machine Operator Goal (LTG) Pt will present with improved right shoulder strength to at least 4/5 flexion, abduction, ER and IR to improve overall right arm function by 2020. LTG Duration 8 weeks 2 Basket Bottom Machine Operator Goal (LTG) Pt will present with improved right shoulder AROM flexion and abduction equal to the left to improve functional use of arm by 11/18/2020. LTG Duration 8 weeks 1 Basket Bottom Machine Operator Goal (LTG) Pt will present with improved QuickDASH score to reflect no more than 15% impairment to reflect improved function and decreased pain by 11/18/2020. LTG Duration 8 weeks Assessment Summary Assessment Initial shoulder abduction is much better today at 142 deg before treatment (active standing). AROM right shoulder abduction in standing increases to 160 deg after [place] Protocol. Progress manual work, strengthening, range. Pt states that he had a hairline fracture left clavicle in 1987 or 1988. He has ongoing left 1st rib hypomobility. Physical Therapy Plan Frequency and Duration Frequency of Treatment 2x/Week Duration of Treatment 8 weeks Plan of Care Start Date 09/18/20 Plan of Care End Date 11/19/20 Therapeutic Interventions Therapeutic Interventions Balance Training,Canalithic Repositioning,Coordination Training,Home Exercise Program ,Joint Mobilizations,Manual Therapy,Neuromuscular Re- education,Patient/Caregiver Education,Self-Care/Home Management,Sensory Integration ,Soft Tissue Mobilization, Taping,Therapeutic Activities, Therapeutic Exercises Modalities Cold Pack/Ice Massage,Electric Stimulation,Hot Packs, Ultrasound Next Visit Focus/Plan Next Note Type Treatment Note Next Visit Plan Progress exercises as pt tolerates, relaxation/ breathing exercises. Consider pect stretch over foam roller, open book, gentle progressive strengthening.
--- NOTE | 2020-10-09 08:21 | PT.OTN ---
Current Diagnoses Pain in right shoulder (10/09/20) Physical Therapy Treatment Note PT-OP-A Visit Information Start: 09/17/20 13:29 Freq: Status: Active Protocol: Document 10/09/20 07:30 MB (Rec: 10/09/20 08:17 MB [id number]) Out-Patient Physical Therapy Visit Information Visit Information Visit Type Treatment Note Visit Start Time 07:30 Visit Stop Time 08:14 Total Visit Minutes 44 Visit Number 6 PT-OP-B Current Condition Start: 09/17/20 13:29 Freq: Status: Active Protocol: Document 09/18/20 07:30 MB (Rec: 09/18/20 07:54 MB [id number]) Current Condition History of Current Condition Onset Date 3 months Current Complaints Pain with reaching to the side History of Current Condition 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 Lifting, push-ups can cause symptoms. He does not tolerate massage. He tried Lyrica and Gabapentin and they affected his short-term memory. Sleeping is going better since he got a Temperpedic mattress . Pt reports 7-810 pain in right shoulder with certain movement including reaching deep into a shelf at the grocery store. Putting on his shirt is problematic and he bought some bigger t-shirts. He has trouble with using back scrubber with his right arm. He feels like the shoulder is frozen and that he has a rotator cuff issue. Pt reports history of hiatal hernia. He has a virtual surgeon appointment this week. He has reflux and snoring and uses a CPAP. He sleeps on his right side with one pillow support under head. Pt has a history of left rotator cuff injury and suddenly he couldn't lift. He had free movement but but lost strength to lift. He went to PT and got better. Pt states that pillow case exercise against the wall was helpful. The body blade was also helpful. Pt sits at a desk all day. He has a desk that can move up and down. The carpet is cushiony and the chair is supportive. 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 Pt likes to walk for exercise. Prior Treatments and Tests X-ray right shoulder 08/06/2020 revealed lateral downsloping appearance to the acromion otherwise unremarkable examination. Treatment Goals Patient/Caregiver Goals To get out of pain and become less cranky. PT-OP-C Subjective Start: 09/17/20 13:29 Freq: Status: Active Protocol: Document 10/09/20 07:30 MB (Rec: 10/09/20 08:17 MB [id number]) OP-PT Subjective Patient Comments Patient Comments I got the shingles shot and I had a bad reaction to it. I got aches. I got an upright bike and it's really good. The instructor tells us to engage our core and we are moving our arms. PT-OP-J Posture/Palpation/Skin Start: 09/17/20 13:29 Freq: Status: Active Protocol: Document 09/18/20 07:30 MB (Rec: 09/18/20 11:20 MB [id number]) Posture Evaluation Comments Posture Comments Standing: forward head, rounded shoulders, increased lumbar lordosis, anterior tilt pelvis, B shoulders elevated (greater on the left), increased thoracic kyphosis and curvature lower thoracic spine with right convexity, left iliac crest higher than the right. PT-OP-K Range of Motion Start: 09/17/20 13:29 Freq: Status: Active Protocol: Document 09/18/20 07:30 MB (Rec: 09/18/20 11:20 MB [id number]) Cervical Spine Range of Motion Cervical Spine Active Testing Position Standing Flexion 22 Extension 25 Rotation Left 40 Rotation Right 40 Lateral Flexion Left 15 Lateral Flexion Right 12 Shoulder Goniometric Range of Motion Shoulder Left Shoulder ROM WFL Yes Testing Position Standing Right Shoulder ROM WFL No Testing Position Standing Flexion 146 Abduction 96 Internal Rotation Behind Back (text) Functional for dominant hand Comments Pt reports increased right shoulder discomfort with active shoulder flexion and abduction in standing. Passive ER and IR in supine with shoulder in 85 deg abd: ER 50 deg and IR 25 deg. Pt reports 8-9/10 pain with this and points to middle delt/ supraspinatus attachment area on the upper humerus. He reports 6/10 right shoulder pain with PROM flexion in supine to 150 deg at the same location. Shoulder ROM Limitations Shoulder ROM Limitations Pain PT-OP-M Strength Start: 09/17/20 13:29 Freq: Status: Active Protocol: Document 09/18/20 07:30 MB (Rec: 09/18/20 11:20 MB [id number]) Shoulder Strength Shoulder Manual Muscle Testing Left Flexion 5 Normal Abduction (C5) 4 Good External Rotation 3+ Fair+ Internal Rotation 4 Good Right Comments MMT deferred d/t pain and limited active ROM Elbow/Forearm Strength Elbow and Forearm Manual Muscle Testing Left Flexion (C6) 5 Normal Extension (C7) 5 Normal Pronation 5 Normal Supination 5 Normal Right Flexion (C6) 4 Good Extension (C7) 5 Normal Pronation 4 Good Supination 4 Good Comments Pt reports minimal discomfort at painful spot near shoulder Wrist Strength Wrist Manual Muscle Testing Left Flexion (C7) 5 Normal Extension (C6) 5 Normal Ulnar Deviation 5 Normal Radial Deviation 5 Normal Right Flexion (C7) 4 Good Extension (C6) 4 Good Ulnar Deviation 4 Good Radial Deviation 4 Good PT-OP-Q Treatments Start: 09/17/20 13:29 Freq: Status: Active Protocol: Document 10/09/20 07:30 MB (Rec: 10/09/20 08:17 MB [id number]) Cardio Equipment Upper Body Ergometer (UBE) Duration (Minutes) 6 Other 3' forward and 3' backwards Manual Therapy Treatment Other Other Manual Treatments [place] Protocol right shoulder with improvements in range again after treatment. Left first rib isometric mob PT-OP-T Assessment and Plan Start: 09/17/20 13:29 Freq: Status: Active Protocol: Document 10/09/20 07:30 MB (Rec: 10/09/20 08:17 MB [id number]) Physical Therapy Assessment Rehab Potential Rehabilitation Potential Fair Evaluation Complexity Number of Personal Factors/Comorbidities 1-2 Number of Body Systems Impaired 1-2 Clinical Presentation at Evaluation Evolving Impairments Impairments Pain,Posture,ROM,Sensation, Soft Tissue Mobility,Strength Other Impairments Pt has underlying HNPP and states that he is sensitive to touch, lifting weights and some other exercises. He has experienced palsy symptoms in the past. He also has anatomical changes of right acromion position. These are barriers to PT. Goals 4 Jail Goal (LTG) Pt will perform progressive HEP with I including postural, range of motion, flexibility and strengthening to improve pain and function by 11/18/2020 . LTG Duration 8 weeks 3 Jail Goal (LTG) Pt will present with improved right shoulder strength to at least 4/5 flexion, abduction, ER and IR to improve overall right arm function by 2020. LTG Duration 8 weeks 2 Jail Goal (LTG) Pt will present with improved right shoulder AROM flexion and abduction equal to the left to improve functional use of arm by 11/18/2020. LTG Duration 8 weeks 1 Jail Goal (LTG) Pt will present with improved QuickDASH score to reflect no more than 15% impairment to reflect improved function and decreased pain by 11/18/2020. LTG Duration 8 weeks Assessment Summary Assessment Before treatment, right shoulder AROM flexion to 155 deg and abduction to 155 deg. Ongoing improvement in active range with [place] Protocol. Initiated Body Blade exercises today and this works well for pt. He will consider for home. Physical Therapy Plan Frequency and Duration Frequency of Treatment 2x/Week Duration of Treatment 8 weeks Plan of Care Start Date 09/18/20 Plan of Care End Date 11/19/20 Therapeutic Interventions Therapeutic Interventions Balance Training,Canalithic Repositioning,Coordination Training,Home Exercise Program ,Joint Mobilizations,Manual Therapy,Neuromuscular Re- education,Patient/Caregiver Education,Self-Care/Home Management,Sensory Integration ,Soft Tissue Mobilization, Taping,Therapeutic Activities, Therapeutic Exercises Modalities Cold Pack/Ice Massage,Electric Stimulation,Hot Packs, Ultrasound Next Visit Focus/Plan Next Note Type Treatment Note Next Visit Plan Review Body Blade as needed. Ongoing [place] Protocol. Progress thoracic mobility over foam roller, pect stretch over foam roller.
--- NOTE | 2020-10-11 08:22 | PT.OTN ---
Current Diagnoses Pain in right shoulder (10/11/20) Physical Therapy Treatment Note PT-OP-A Visit Information Start: 09/17/20 13:29 Freq: Status: Active Protocol: Document 10/11/20 07:32 SP (Rec: 10/11/20 08:55 SP [id number]) Out-Patient Physical Therapy Visit Information Visit Information Visit Type Treatment Note Visit Start Time 07:32 Visit Stop Time 08:22 Total Visit Minutes 50 Visit Number 7 Number of EKG TECH Visits 1 PT-OP-B Current Condition Start: 09/17/20 13:29 Freq: Status: Active Protocol: Document 09/18/20 07:30 MB (Rec: 09/18/20 07:54 MB [id number]) Current Condition History of Current Condition Onset Date 3 months Current Complaints Pain with reaching to the side History of Current Condition 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 Lifting, push-ups can cause symptoms. He does not tolerate massage. He tried Lyrica and Gabapentin and they affected his short-term memory. Sleeping is going better since he got a Temperpedic mattress . Pt reports 7-8/10 pain in right shoulder with certain movement including reaching deep into a shelf at the grocery store. Putting on his shirt is problematic and he bought some bigger t-shirts. He has trouble with using back scrubber with his right arm. He feels like the shoulder is frozen and that he has a rotator cuff issue. Pt reports history of hiatal hernia. He has a virtual surgeon appointment this week. He has reflux and snoring and uses a CPAP. He sleeps on his right side with one pillow support under head. Pt has a history of left rotator cuff injury and suddenly he couldn't lift. He had free movement but but lost strength to lift. He went to PT and got better. Pt states that pillow case exercise against the wall was helpful. The body blade was also helpful. Pt sits at a desk all day. He has a desk that can move up and down. The carpet is cushiony and the chair is supportive. 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 Pt likes to walk for exercise. Prior Treatments and Tests X-ray right shoulder 08/06/2020 revealed lateral downsloping appearance to the acromion otherwise unremarkable examination. Treatment Goals Patient/Caregiver Goals To get out of pain and become less cranky. PT-OP-C Subjective Start: 09/17/20 13:29 Freq: Status: Active Protocol: Document 10/11/20 07:32 SP (Rec: 10/11/20 08:55 SP [id number]) OP-PT Subjective Patient Comments Patient Comments I am doing well with HEP. PT-OP-J Posture/Palpation/Skin Start: 09/17/20 13:29 Freq: Status: Active Protocol: Document 09/18/20 07:30 MB (Rec: 09/18/20 11:20 MB [id number]) Posture Evaluation Comments Posture Comments Standing: forward head, rounded shoulders, increased lumbar lordosis, anterior tilt pelvis, B shoulders elevated (greater on the left), increased thoracic kyphosis and curvature lower thoracic spine with right convexity, left iliac crest higher than the right. PT-OP-K Range of Motion Start: 09/17/20 13:29 Freq: Status: Active Protocol: Document 09/18/20 07:30 MB (Rec: 09/18/20 11:20 MB [id number]) Cervical Spine Range of Motion Cervical Spine Active Testing Position Standing Flexion 22 Extension 25 Rotation Left 40 Rotation Right 40 Lateral Flexion Left 15 Lateral Flexion Right 12 Shoulder Goniometric Range of Motion Shoulder Left Shoulder ROM WFL Yes Testing Position Standing Right Shoulder ROM WFL No Testing Position Standing Flexion 146 Abduction 96 Internal Rotation Behind Back (text) Functional for dominant hand Comments Pt reports increased right shoulder discomfort with active shoulder flexion and abduction in standing. Passive ER and IR in supine with shoulder in 85 deg abd: ER 50 deg and IR 25 deg. Pt reports 8-9/10 pain with this and points to middle delt/ supraspinatus attachment area on the upper humerus. He reports 6/10 right shoulder pain with PROM flexion in supine to 150 deg at the same location. Shoulder ROM Limitations Shoulder ROM Limitations Pain PT-OP-M Strength Start: 09/17/20 13:29 Freq: Status: Active Protocol: Document 09/18/20 07:30 MB (Rec: 09/18/20 11:20 MB [id number]) Shoulder Strength Shoulder Manual Muscle Testing Left Flexion 5 Normal Abduction (C5) 4 Good External Rotation 3+ Fair+ Internal Rotation 4 Good Right Comments MMT deferred d/t pain and limited active ROM Elbow/Forearm Strength Elbow and Forearm Manual Muscle Testing Left Flexion (C6) 5 Normal Extension (C7) 5 Normal Pronation 5 Normal Supination 5 Normal Right Flexion (C6) 4 Good Extension (C7) 5 Normal Pronation 4 Good Supination 4 Good Comments Pt reports minimal discomfort at painful spot near shoulder Wrist Strength Wrist Manual Muscle Testing Left Flexion (C7) 5 Normal Extension (C6) 5 Normal Ulnar Deviation 5 Normal Radial Deviation 5 Normal Right Flexion (C7) 4 Good Extension (C6) 4 Good Ulnar Deviation 4 Good Radial Deviation 4 Good PT-OP-Q Treatments Start: 09/17/20 13:29 Freq: Status: Active Protocol: Document 10/11/20 07:32 SP (Rec: 10/11/20 08:55 SP [id number]) Cardio Equipment Upper Body Ergometer (UBE) Duration (Minutes) 6 RPM 55 Seat Position 11 Height 3.5 Other 3' forward and 3' backwards Therapeutic Exercises Supine Exercises 1/2 foam roller posterior capsule stretch Side right Comments 30 sec hold and pt to perform B at home Sidelying Exercises ABD OH Side right Reps/Minutes x5 Comments cued scap depression going into ABD, good self corrections sleeper (post cap) stretch Sidelying Exercise Name R sidelying and standing at wall Side right Reps/Minutes 30 sec x2 Comments cued shld perpendicular to table/wall, slow gentle stretch TS rotation w/ HABD (open book) Sidelying Exercise Name Add HEP Side right Reps/Minutes 10 sec x10 Comments cued scap depression w/humeral lateral rotation Standing Exercises Thread the needle Side bilateral Comments 8 reps each side Manual Therapy Treatment Other Other Manual Treatments [place] Protocol right shoulder with improvements in range again after treatment. PT-OP-T Assessment and Plan Start: 09/17/20 13:29 Freq: Status: Active Protocol: Document 10/11/20 07:32 SP (Rec: 10/11/20 08:55 SP [id number]) Physical Therapy Assessment Goals 4 Performance Test Architect Goal (LTG) Pt will perform progressive HEP with I including postural, range of motion, flexibility and strengthening to improve pain and function by 11/18/2020 . LTG Duration 8 weeks 3 Performance Test Architect Goal (LTG) Pt will present with improved right shoulder strength to at least 4/5 flexion, abduction, ER and IR to improve overall right arm function by 2020. LTG Duration 8 weeks 2 Group Home Goal (LTG) Pt will present with improved right shoulder AROM flexion and abduction equal to the left to improve functional use of arm by 11/18/2020. LTG Duration 8 weeks 1 Performance Test Architect Goal (LTG) Pt will present with improved QuickDASH score to reflect no more than 15% impairment to reflect improved function and decreased pain by 11/18/2020. LTG Duration 8 weeks Assessment Summary Assessment Pt decreased R shld depression post manual and AROM HEP review and full ROM in supine FF and sidelying ABD. Initiated open book and sleeper stretch to allow for increased scapular and GH ROM with good patient feedback. Ongoing improvement in AROM. Physical Therapy Plan Frequency and Duration Frequency of Treatment 2x/Week Duration of Treatment 8 weeks Plan of Care Start Date 09/18/20 Plan of Care End Date 11/19/20 Therapeutic Interventions Therapeutic Interventions Balance Training,Canalithic Repositioning,Coordination Training,Home Exercise Program ,Joint Mobilizations,Manual Therapy,Neuromuscular Re- education,Patient/Caregiver Education,Self-Care/Home Management,Sensory Integration ,Soft Tissue Mobilization, Taping,Therapeutic Activities, Therapeutic Exercises Modalities Cold Pack/Ice Massage,Electric Stimulation,Hot Packs, Ultrasound Next Visit Focus/Plan Next Note Type Treatment Note Next Visit Plan Tx tx Review Body Blade as needed, didn't get to last tx . Ongoing [place] Protocol. Progress thoracic mobility over foam roller, pec stretch over foam roller.
--- NOTE | 2020-10-18 08:36 | PT.OTN ---
Current Diagnoses Pain in right shoulder (10/18/20) Physical Therapy Treatment Note PT-OP-A Visit Information Start: 09/17/20 13:29 Freq: Status: Active Protocol: Document 10/18/20 07:30 MB (Rec: 10/18/20 08:33 MB [id number]) Out-Patient Physical Therapy Visit Information Visit Information Visit Type Treatment Note Visit Start Time 07:30 Visit Stop Time 08:32 Total Visit Minutes 62 Visit Number 8 Number of ICT PROGRAMMER Visits 0 PT-OP-B Current Condition Start: 09/17/20 13:29 Freq: Status: Active Protocol: Document 09/18/20 07:30 MB (Rec: 09/18/20 07:54 MB [id number]) Current Condition History of Current Condition Onset Date 3 months Current Complaints Pain with reaching to the side History of Current Condition 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 Lifting, push-ups can cause symptoms. He does not tolerate massage. He tried Lyrica and Gabapentin and they affected his short-term memory. Sleeping is going better since he got a Temperpedic mattress . Pt reports 7-8/10 pain in right shoulder with certain movement including reaching deep into a shelf at the grocery store. Putting on his shirt is problematic and he bought some bigger t-shirts. He has trouble with using back scrubber with his right arm. He feels like the shoulder is frozen and that he has a rotator cuff issue. Pt reports history of hiatal hernia. He has a virtual surgeon appointment this week. He has reflux and snoring and uses a CPAP. He sleeps on his right side with one pillow support under head. Pt has a history of left rotator cuff injury and suddenly he couldn't lift. He had free movement but but lost strength to lift. He went to PT and got better. Pt states that pillow case exercise against the wall was helpful. The body blade was also helpful. Pt sits at a desk all day. He has a desk that can move up and down. The carpet is cushiony and the chair is supportive. 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 Pt likes to walk for exercise. Prior Treatments and Tests X-ray right shoulder 08/06/2020 revealed lateral downsloping appearance to the acromion otherwise unremarkable examination. Treatment Goals Patient/Caregiver Goals To get out of pain and become less cranky. PT-OP-C Subjective Start: 09/17/20 13:29 Freq: Status: Active Protocol: Document 10/18/20 07:30 MB (Rec: 10/18/20 08:33 MB [id number]) OP-PT Subjective Patient Comments Patient Comments I'm getting pretty good movement in it. I'm almost there. PT-OP-J Posture/Palpation/Skin Start: 09/17/20 13:29 Freq: Status: Active Protocol: Document 09/18/20 07:30 MB (Rec: 09/18/20 11:20 MB [id number]) Posture Evaluation Comments Posture Comments Standing: forward head, rounded shoulders, increased lumbar lordosis, anterior tilt pelvis, B shoulders elevated (greater on the left), increased thoracic kyphosis and curvature lower thoracic spine with right convexity, left iliac crest higher than the right. PT-OP-K Range of Motion Start: 09/17/20 13:29 Freq: Status: Active Protocol: Document 09/18/20 07:30 MB (Rec: 09/18/20 11:20 MB [id number]) Cervical Spine Range of Motion Cervical Spine Active Testing Position Standing Flexion 22 Extension 25 Rotation Left 40 Rotation Right 40 Lateral Flexion Left 15 Lateral Flexion Right 12 Shoulder Goniometric Range of Motion Shoulder Left Shoulder ROM WFL Yes Testing Position Standing Right Shoulder ROM WFL No Testing Position Standing Flexion 146 Abduction 96 Internal Rotation Behind Back (text) Functional for dominant hand Comments Pt reports increased right shoulder discomfort with active shoulder flexion and abduction in standing. Passive ER and IR in supine with shoulder in 85 deg abd: ER 50 deg and IR 25 deg. Pt reports 8-9/10 pain with this and points to middle delt/ supraspinatus attachment area on the upper humerus. He reports 6/10 right shoulder pain with PROM flexion in supine to 150 deg at the same location. Shoulder ROM Limitations Shoulder ROM Limitations Pain PT-OP-M Strength Start: 09/17/20 13:29 Freq: Status: Active Protocol: Document 09/18/20 07:30 MB (Rec: 09/18/20 11:20 MB [id number]) Shoulder Strength Shoulder Manual Muscle Testing Left Flexion 5 Normal Abduction (C5) 4 Good External Rotation 3+ Fair+ Internal Rotation 4 Good Right Comments MMT deferred d/t pain and limited active ROM Elbow/Forearm Strength Elbow and Forearm Manual Muscle Testing Left Flexion (C6) 5 Normal Extension (C7) 5 Normal Pronation 5 Normal Supination 5 Normal Right Flexion (C6) 4 Good Extension (C7) 5 Normal Pronation 4 Good Supination 4 Good Comments Pt reports minimal discomfort at painful spot near shoulder Wrist Strength Wrist Manual Muscle Testing Left Flexion (C7) 5 Normal Extension (C6) 5 Normal Ulnar Deviation 5 Normal Radial Deviation 5 Normal Right Flexion (C7) 4 Good Extension (C6) 4 Good Ulnar Deviation 4 Good Radial Deviation 4 Good PT-OP-Q Treatments Start: 09/17/20 13:29 Freq: Status: Active Protocol: Document 10/18/20 07:30 MB (Rec: 10/18/20 08:33 MB [id number]) Cardio Equipment Upper Body Ergometer (UBE) Duration (Minutes) 6 Other 3' forward and 3' backwards Therapeutic Exercises Supine Exercises 1/2 foam roller pect stretch Comments Ed today and added to HEP 1/2 foam roller posterior capsule stretch Comments D/c today 1/2 foam roller flexion, abduction, ER with cane Comments D/c today Sidelying Exercises ABD OH Side bilateral Comments Ed today and pt to perform against the wall, together sleeper (post cap) stretch Side bilateral Comments 45 sec x2, B arms, side lying TS rotation w/ HABD (open book) Comments D/c today Sitting Exercises AAROM right shoulder abduction over table Comments Con't at home when getting glass of water Standing Exercises Body Blade exercises Comments B UEs, retraction, shoulder range abd/scaption/flexion Thread the needle Comments Con't at home during work day Active shoulder abduction standing Comments D/c today, repeat Self-massage with racquet ball intrascapular muscles Comments D/c d/t pt not doing it Pillow case flexion Comments Pt to con't at home Other Exercises Self-SCM MWM Comments D/cd today d/t pt not performing Manual Therapy Treatment Other Other Manual Treatments Right shoulder ROM before [place] Protocol: flexion right 161 deg and left 164 deg AROM; abduction right 160 deg and left 161 deg AROM. After protocol: improved mobility. Added superior to inferior mobs with pt sitting and right arm in ER. PT-OP-T Assessment and Plan Start: 09/17/20 13:29 Freq: Status: Active Protocol: Document 10/18/20 07:30 MB (Rec: 10/18/20 08:33 MB [id number]) Physical Therapy Assessment Rehab Potential Rehabilitation Potential Fair Evaluation Complexity Number of Personal Factors/Comorbidities 1-2 Number of Body Systems Impaired 1-2 Clinical Presentation at Evaluation Evolving Impairments Impairments Pain,Posture,ROM,Sensation, Soft Tissue Mobility,Strength Other Impairments Pt has underlying HNPP and states that he is sensitive to touch, lifting weights and some other exercises. He has experienced palsy symptoms in the past. He also has anatomical changes of right acromion position. These are barriers to PT. Goals 4 Halfway Goal (LTG) Pt will perform progressive HEP with I including postural, range of motion, flexibility and strengthening to improve pain and function by 11/18/2020 . LTG Duration 8 weeks 3 Assembler Bonding Goal (LTG) Pt will present with improved right shoulder strength to at least 4/5 flexion, abduction, ER and IR to improve overall right arm function by 2020. LTG Duration 8 weeks 2 Halfway Goal (LTG) Pt will present with improved right shoulder AROM flexion and abduction equal to the left to improve functional use of arm by 11/18/2020. LTG Duration 8 weeks 1 Halfway Goal (LTG) Pt will present with improved QuickDASH score to reflect no more than 15% impairment to reflect improved function and decreased pain by 11/18/2020. LTG Duration 8 weeks Assessment Summary Assessment Pt con't to progress with active range and pain reduction. He feels he is getting to self-management phase. He responds well to [place] Protocol right shoulder today. Anticipate d/c next treatment date. Physical Therapy Plan Frequency and Duration Frequency of Treatment 2x/Week Duration of Treatment 8 weeks Plan of Care Start Date 09/18/20 Plan of Care End Date 11/19/20 Therapeutic Interventions Therapeutic Interventions Balance Training,Canalithic Repositioning,Coordination Training,Home Exercise Program ,Joint Mobilizations,Manual Therapy,Neuromuscular Re- education,Patient/Caregiver Education,Self-Care/Home Management,Sensory Integration ,Soft Tissue Mobilization, Taping,Therapeutic Activities, Therapeutic Exercises Modalities Cold Pack/Ice Massage,Electric Stimulation,Hot Packs, Ultrasound Next Visit Focus/Plan Next Note Type Discharge Summary
--- NOTE | 2020-10-22 15:21 | PT.OTN ---
Current Diagnoses Pain in right shoulder (10/22/20) Physical Therapy Treatment Note PT-OP-A Visit Information Start: 09/17/20 13:29 Freq: Status: Active Protocol: Document 10/22/20 14:46 MB (Rec: 10/22/20 15:05 MB [id number]) Out-Patient Physical Therapy Visit Information Visit Information Visit Type Discharge Summary Visit Start Time 14:46 Visit Stop Time 15:04 Total Visit Minutes 18 Visit Number 9 PT-OP-B Current Condition Start: 09/17/20 13:29 Freq: Status: Active Protocol: Document 09/18/20 07:30 MB (Rec: 09/18/20 07:54 MB [id number]) Current Condition History of Current Condition Onset Date 3 months Current Complaints Pain with reaching to the side History of Current Condition 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 Lifting, push-ups can cause symptoms. He does not tolerate massage. He tried Lyrica and Gabapentin and they affected his short-term memory. Sleeping is going better since he got a Temperpedic mattress . Pt reports 7-8/10 pain in right shoulder with certain movement including reaching deep into a shelf at the grocery store. Putting on his shirt is problematic and he bought some bigger t-shirts. He has trouble with using back scrubber with his right arm. He feels like the shoulder is frozen and that he has a rotator cuff issue. Pt reports history of hiatal hernia. He has a virtual surgeon appointment this week. He has reflux and snoring and uses a CPAP. He sleeps on his right side with one pillow support under head. Pt has a history of left rotator cuff injury and suddenly he couldn't lift. He had free movement but but lost strength to lift. He went to PT and got better. Pt states that pillow case exercise against the wall was helpful. The body blade was also helpful. Pt sits at a desk all day. He has a desk that can move up and down. The carpet is cushiony and the chair is supportive. 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 Pt likes to walk for exercise. Prior Treatments and Tests X-ray right shoulder 08/06/2020 revealed lateral downsloping appearance to the acromion otherwise unremarkable examination. Treatment Goals Patient/Caregiver Goals To get out of pain and become less cranky. PT-OP-C Subjective Start: 09/17/20 13:29 Freq: Status: Active Protocol: Document 10/22/20 14:46 MB (Rec: 10/22/20 15:05 MB [id number]) OP-PT Subjective Patient Comments Patient Comments Next week is going to be a ride. I have to go to [place] three separate days for the work-up about my hiatal hernia . Pt has had no trouble putting on his shirt over the last week. PT-OP-J Posture/Palpation/Skin Start: 09/17/20 13:29 Freq: Status: Active Protocol: Document 09/18/20 07:30 MB (Rec: 09/18/20 11:20 MB [id number]) Posture Evaluation Comments Posture Comments Standing: forward head, rounded shoulders, increased lumbar lordosis, anterior tilt pelvis, B shoulders elevated (greater on the left), increased thoracic kyphosis and curvature lower thoracic spine with right convexity, left iliac crest higher than the right. PT-OP-K Range of Motion Start: 09/17/20 13:29 Freq: Status: Active Protocol: Document 09/18/20 07:30 MB (Rec: 09/18/20 11:20 MB [id number]) Cervical Spine Range of Motion Cervical Spine Active Testing Position Standing Flexion 22 Extension 25 Rotation Left 40 Rotation Right 40 Lateral Flexion Left 15 Lateral Flexion Right 12 Shoulder Goniometric Range of Motion Shoulder Left Shoulder ROM WFL Yes Testing Position Standing Right Shoulder ROM WFL No Testing Position Standing Flexion 146 Abduction 96 Internal Rotation Behind Back (text) Functional for dominant hand Comments Pt reports increased right shoulder discomfort with active shoulder flexion and abduction in standing. Passive ER and IR in supine with shoulder in 85 deg abd: ER 50 deg and IR 25 deg. Pt reports 8-9/10 pain with this and points to middle delt/ supraspinatus attachment area on the upper humerus. He reports 6/10 right shoulder pain with PROM flexion in supine to 150 deg at the same location. Shoulder ROM Limitations Shoulder ROM Limitations Pain PT-OP-M Strength Start: 09/17/20 13:29 Freq: Status: Active Protocol: Document 09/18/20 07:30 MB (Rec: 09/18/20 11:20 MB [id number]) Shoulder Strength Shoulder Manual Muscle Testing Left Flexion 5 Normal Abduction (C5) 4 Good External Rotation 3+ Fair+ Internal Rotation 4 Good Right Comments MMT deferred d/t pain and limited active ROM Elbow/Forearm Strength Elbow and Forearm Manual Muscle Testing Left Flexion (C6) 5 Normal Extension (C7) 5 Normal Pronation 5 Normal Supination 5 Normal Right Flexion (C6) 4 Good Extension (C7) 5 Normal Pronation 4 Good Supination 4 Good Comments Pt reports minimal discomfort at painful spot near shoulder Wrist Strength Wrist Manual Muscle Testing Left Flexion (C7) 5 Normal Extension (C6) 5 Normal Ulnar Deviation 5 Normal Radial Deviation 5 Normal Right Flexion (C7) 4 Good Extension (C6) 4 Good Ulnar Deviation 4 Good Radial Deviation 4 Good PT-OP-Q Treatments Start: 09/17/20 13:29 Freq: Status: Active Protocol: Document 10/22/20 14:46 MB (Rec: 10/22/20 15:05 MB [id number]) Cardio Equipment Upper Body Ergometer (UBE) Duration (Minutes) 11 Other Alternating 1' forward and 1' backwards Therapeutic Exercises Other Exercises HEP review Comments Pt has no HEP questions and does not need more handouts PT-OP-T Assessment and Plan Start: 09/17/20 13:29 Freq: Status: Active Protocol: Document 10/22/20 14:46 MB (Rec: 10/22/20 15:05 MB [id number]) Physical Therapy Assessment Goals 4 Project Management Advisor Goal (LTG) Pt will perform progressive HEP with I including postural, range of motion, flexibility and strengthening to improve pain and function by 11/18/2020 . 10/22/2020: Pt is performing progressive exercises at home LTG Duration Met 3 Project Management Advisor Goal (LTG) Pt will present with improved right shoulder strength to at least 4/5 flexion, abduction, ER and IR to improve overall right arm function by 2020. 10/22/2020: Pt presents with 4 /5 right shoulder MMT flexion, abduction, ER and IR LTG Duration Met 2 Mcfp Goal (LTG) Pt will present with improved right shoulder AROM flexion and abduction equal to the left to improve functional use of arm by 11/18/2020. 10/22/2020: Active right shoulder abduction is equal to the left and active right shoulder flexion is 5 deg less than the left and pt to con't flexion ROM with overpressure from left hand. LTG Duration Partially met 1 Project Management Advisor Goal (LTG) Pt will present with improved QuickDASH score to reflect no more than 15% impairment to reflect improved function and decreased pain by 11/18/2020. 10/22/2020: QuickDASH score reflects 6.81% impairment LTG Duration Met Assessment Summary Assessment Pt has met the following PT goals since starting PT: QuickDASH score, active right shoulder ROM and right shoulder MMT goals and performance of progressive HEP . His right shoulder flexion is much improved and is only 5 deg less than the left. He has no more pain or problems carrying shopping bags and has no trouble sticking his arm in his shirt. Will d/c PT.
== END 2020-10-26 14:41 ==
LOC: PHYS 14:30
PROVIDERS: Referring Provider Physician Assistant; Visit Provider Physician Assistant
DX: M25.511 Pain in right shoulder (principal)
CPT/HCPCS: 97110; 97140; 97161

== ENCOUNTER → 2024-04-01 13:24 | Outpatient (CLI) | payer OTHER, SELFPAY ==
[2024-04-01 14:32] LABS: Influenza A - CEPHEID Flu A NEGATIVE (NEGATIVE); Influenza B - CEPHEID Flu B NEGATIVE (NEGATIVE); Respiratory Syncytial Virus Negative (Negative)
[2024-04-01 14:33] LABS: COVID-19 CEPHEID 4-PLEX PCR Negative (Negative)
== END ==
PROVIDERS: Visit Provider Physician Assistant Surgical
DX: J02.9 Acute pharyngitis, unspecified (principal); R05.9 Cough, unspecified
CPT/HCPCS: 0241U; 87070